=== PATIENT | male | born 2000 | race Hispanic/Latino ===

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

== ENCOUNTER 2020-11-04 04:18 | Emergency (ER) | payer BC, OTHER, SELFPAY ==
[2020-11-04 06:12] LABS: Urine Blood NEGATIVE (NEG); Urine Glucose NEGATIVE (NEG); Urine Protein NEGATIVE (NEG); Urine Specific Gravity 1.025 (1.005-1.030); Urine pH 6.5 (5.0-7.0)
[2020-11-04 07:36] LABS: Absolute Lymphocytes (CBC) 2.2 K/uL (0.7-4.9); Basophils % 0.7 % (0-1.3); Hematocrit 44.6 % (39.6-49.0); RBC Red Blood Cell Count 5.12 M/uL (4.33-5.43)
[2020-11-04] MEDS ORDERED: MAGNES/ALUMIN/SIMET 30ML UCUP ONE (07:42)
[2020-11-04] MEDS ORDERED: NA CHLORIDE 0.9% 1,000 ML ONE (07:43)
[2020-11-04] MEDS ORDERED: ONDANSETRON 4 MG/2 ML VIAL ONE (07:43)
[2020-11-04] MEDS ORDERED: LIDOCAINE VISCOUS 2% SOLN 15 ML UDC ONE (07:43)
[2020-11-04 07:51] LABS: ALT/SGPT 13 U/L (12-78); AST/SGOT 12 U/L (15-37); Albumin 4.3 g/dL (3.4-5.0); Alkaline Phosphatase 47 U/L (45-117); BUN Blood Urea Nitrogen 8 mg/dL (7-18); Bicarbonate 25 mmol/L (21-32); Bilirubin Direct 0.3 mg/dL (0-0.2); Bilirubin Total 1.8 mg/dL (0.2-1.0); Glucose Level 96 mg/dL (74-106); Lipase 109 U/L (73-393); Potassium 3.8 mmol/L (3.5-5.1); Protein, Total 7.3 g/dL (6.4-8.2); Sodium Level 143 mmol/L (136-145)
[2020-11-04 08:15] LABS: Barbiturates NEGATIVE (NEGATIVE); Benzodiazepines NEGATIVE (NEGATIVE); Cocaine NEGATIVE (NEGATIVE); METHAMPHETAM NEGATIVE (NEGATIVE); Methadone NEGATIVE (NEGATIVE); Opiates NEGATIVE (NEGATIVE); Phencyclidine NEGATIVE (NEGATIVE); THC Cannibis POSITIVE (NEGATIVE)
--- NOTE | 2020-11-04 08:38 | RAD REPORT ---
EXAM DESCRIPTION: CT - Abdomen Pelvis W Contrast - 11/04/2020 8:11 am CLINICAL HISTORY: Abdominal pain COMPARISON: none. TECHNIQUE: Computed axial tomography of the abdomen pelvis was obtained. 100 cc Isovue-300 was admin istered intravenously. Oral contrast was not requested which limits evaluation of bowel. All CT scans are performed using dose optimization technique as appropriate and may include automated exposure control or mA/KV adjustment according to patient size. FINDINGS: The liver, spleen, pancreas, adrenal and kidneys appear unremarkable. There is no evidence of diverticulitis. Normal appendix IMPRESSION: No acute abnormality is displayed.
--- NOTE | 2020-11-04 09:24 | ER ---
Nurse's Notes [facility] Name: Lee Frey Age: 20 yrs Sex: Male : 2000 Arrival Date: 11/04/2020 Time: 04:22 Bed 13 Private MD: Diagnosis: Abdominal tenderness;Gastritis, unspecified Presentation: 11/04 04:41 Chief complaint: Patient states: states abd pain for last 3 days in [facility], no ll2 vomiting but slight nausea, no diarrhea or blood stools. was taking tylenol and motrin alternately for a tooth ache last two days, last dose of motrin was yesterday at 1600. Coronavirus screen: Client denies travel out of the [place] in the last 14 days. At this time, the client does not indicate any symptoms associated with coronavirus-19. Ebola Screen: Patient negative for fever greater than or equal to 101.5 degrees Fahrenheit, and additional compatible Ebola Virus Disease symptoms. Initial Sepsis Screen: Does the patient meet any 2 criteria? No. Patient's initial sepsis screen is negative. Does the patient have a suspected source of infection? No. Patient's initial sepsis screen is negative. Risk Assessment: Do you want to hurt yourself or someone else? Patient reports no desire to harm self or others. Onset of symptoms was November 01, 2020. 04:41 Method Of Arrival: Ambulatory ll2 04:41 Acuity: CHRISTIAN 3 ll2 Triage Assessment: 04:45 General: Appears in no apparent distress. Behavior is calm, cooperative, appropriate ll2 for age. Pain: Complains of pain in abdomen. GI: Abdomen is flat, non-distended. Historical: - Allergies: 04:45 No Known Allergies; ll2 - Home Meds: 04:45 None [Active]; ll2 - PMHx: 04:45 None; ll2 - Immunization history:: Adult Immunizations unknown. - Social history:: Smoking status: Patient denies any tobacco usage or history of. Patient uses alcohol, occasionally. Screenin:45 Abuse screen: Denies threats or abuse. Nutritional screening: No deficits noted. ll2 Tuberculosis screening: No symptoms or risk factors identified. Fall Risk None identified. Assessment: 04:45 General: Appears in no apparent distress. Behavior is calm, cooperative, appropriate ll2 for age. Pain: Complains of pain in abdomen. Neuro: Level of Consciousness is awake, alert, obeys commands, Oriented to person, place, time, situation. Cardiovascular: Patient's skin is warm and dry. Respiratory: Airway is patent Respiratory effort is even, unlabored, Respiratory pattern is regular, symmetrical. GI: Bowel sounds present X 4 quads. Abd is soft Abdomen is tender to palpation in right upper quadrant and left upper quadrant. : No signs and/or symptoms were reported regarding the genitourinary system. EENT: No signs and/or symptoms were reported regarding the EENT system. Derm: Skin is intact, is healthy with good turgor, Skin is dry, Skin is pink, warm \T\ dry. Musculoskeletal: Circulation, motion, and sensation intact. Range of motion: intact in all extremities. 05:24 Reassessment: Patient and/or family updated on plan of care and expected duration. Pain ll2 level reassessed. Patient is alert, oriented x 3, equal unlabored respirations, skin warm/dry/pink. 07:39 Reassessment: Patient appears in no apparent distress at this time. Patient and/or ph family updated on plan of care and expected duration. Pain level reassessed. Patient is alert, oriented x 3, equal unlabored respirations, skin warm/dry/pink. Vital Signs: 04:41 BP 115 / 77; Pulse 61; Resp 17; Temp 97.7; Pulse Ox 98% on R/A; ll2 04:45 BP 115 / 77; Pulse 61; Resp 17; Temp 97.7; Pulse Ox 98% on R/A; ll2 05:47 BP 116 / 79; Pulse 59; Resp 16; Pulse Ox 99% on R/A; ll2 07:39 BP 116 / 77; Pulse 64; Resp 18; Pulse Ox 100% on R/A; ph ED Course: 04:22 Patient arrived in ED. ag3 04:41 Bibi Lewis, CARMELA is Primary Nurse. ll2 04:44 Triage completed. ll2 04:45 Arm band placed on right wrist. ll2 04:45 Patient has correct armband on for positive identification. Placed in gown. Bed in low ll2 position. Call light in reach. Side rails up X 1. Pulse ox on. NIBP on. 06:52 Sai Harley MD is Attending Physician. pkl 07:39 Initial lab(s) drawn, by wv, sent to lab. Inserted saline lock: 20 gauge in right ph antecubital area, using aseptic technique. Blood collected. 08:12 CT Abd/Pelvis - IV Contrast Only In Process Unspecified. EDMS 08:15 Primary Nurse role handed off by Bibi Lewis RN 08:19 Attending Physician role handed off by Sai Harley MD cha 08:19 Jose David Mckenzie MD is Attending Physician. renetta 09:23 Clementine Jimenez MD is Referral Physician. renetta 09:33 No provider procedures requiring assistance completed. IV discontinued, intact, ss bleeding controlled, No redness/swelling at site. Pressure dressing applied. Administered Medications: 07:38 Drug: NS 0.9% 1000 ml Route: IV; Rate: 1000 ml; Site: right antecubital; ph 07:38 Drug: Zofran (Ondansetron) 4 mg Route: IVP; Site: right antecubital; ph 09:32 Follow up: Response: Marked relief of symptoms ss 07:39 Drug: GI Cocktail without - (Maalox Suspension 30 ml, Lidocaine Liquid 2 % 15 ph ml) Route: PO; 09:31 Follow up: Response: No adverse reaction; Pain is decreased ss 09:31 Not Given (Pt reports feeling better, and wanted to leave now): Pepcid 20 mg IVP once ss Outcome: 09:23 Discharge ordered by . renetta 09:33 Discharged to home ambulatory. ss 09:33 Condition: good 09:33 Discharge instructions given to patient, family, Instructed on discharge instructions, follow up and referral plans. medication usage, Demonstrated understanding of instructions, follow-up care, medications, Prescriptions given X 2. 09:35 Patient left the ED. ss Signatures: Dispatcher [employer] EDGA Yesica Gore RN RN Jose aDvid Mckenzie MD MD cha Lam, Pin, MD MD pkl Smirch, Shelby, RN RN Agnieszka Spaulding RN RN Sheyla Syed 3 Bibi Lewis RN RN ll2
--- NOTE | 2020-11-04 09:24 | EDPHYS ---
Physician Documentation [facility] Name: Lee Frey Age: 20 yrs Sex: Male : 2000 Arrival Date: 11/04/2020 Time: 04:22 Bed 13 Private MD: ED Physician Jose David Mckenzie HPI: 11/04 07:02 This 20 yrs old Male presents to ER via Ambulatory with complaints of pkl Abdominal Pain. 07:02 The patient presents with abdominal pain in the epigastric area. Onset: The pkl symptoms/episode began/occurred 3 day(s) ago. The symptoms do not radiate. Associated signs and symptoms: Pertinent positives: nausea. Historical: - Allergies: 04:45 No Known Allergies; ll2 - Home Meds: 04:45 None [Active]; ll2 - PMHx: 04:45 None; ll2 - Immunization history:: Adult Immunizations unknown. - Social history:: Smoking status: Patient denies any tobacco usage or history of. Patient uses alcohol, occasionally. ROS: 07:02 Eyes: Negative for injury, pain, redness, and discharge, ENT: Negative for injury, pkl pain, and discharge, Neck: Negative for injury, pain, and swelling, Cardiovascular: Negative for chest pain, palpitations, and edema, Respiratory: Negative for shortness of breath, cough, wheezing, and pleuritic chest pain. 07:02 Abdomen/GI: Positive for abdominal pain, nausea, of the epigastric area. 07:02 Back: Negative for acute changes. 07:02 : Negative for urinary symptoms. 07:02 MS/extremity: Negative for acute changes. 07:02 Skin: Negative for rash. 07:02 Neuro: Negative for altered mental status. Exam: 07:02 Head/Face: Normocephalic, atraumatic. Eyes: Pupils equal round and reactive to light, pkl extra-ocular motions intact. Lids and lashes normal. Conjunctiva and sclera are non-icteric and not injected. Cornea within normal limits. Periorbital areas with no swelling, redness, or edema. ENT: Nares patent. No nasal discharge, no septal abnormalities noted. Tympanic membranes are normal and external auditory canals are clear. Oropharynx with no redness, swelling, or masses, exudates, or evidence of obstruction, uvula midline. Mucous membranes moist. Neck: Trachea midline, no thyromegaly or masses palpated, and no cervical lymphadenopathy. Supple, full range of motion without nuchal rigidity, or vertebral point tenderness. No Meningismus. Chest/axilla: Normal chest wall appearance and motion. Nontender with no deformity. No lesions are appreciated. Cardiovascular: Regular rate and rhythm with a normal S1 and S2. No gallops, murmurs, or rubs. Normal PMI, no JVD. No pulse deficits. Respiratory: Lungs have equal breath sounds bilaterally, clear to auscultation and percussion. No rales, rhonchi or wheezes noted. No increased work of breathing, no retractions or nasal flaring. 07:02 Abdomen/GI: Bowel sounds: normal, Palpation: soft, mild abdominal tenderness, in the epigastric area. 07:02 Back: Exam negative for acute changes. 07:02 : Exam negative for acute changes. 07:02 Musculoskeletal/extremity: Exam is negative for acute changes. 07:02 Skin: Exam negative for rash. 07:02 Neuro: Orientation: is normal, Mentation: is normal, Cranial nerves: grossly normal, Motor: is normal. Vital Signs: 04:41 BP 115 / 77; Pulse 61; Resp 17; Temp 97.7; Pulse Ox 98% on R/A; ll2 04:45 BP 115 / 77; Pulse 61; Resp 17; Temp 97.7; Pulse Ox 98% on R/A; ll2 05:47 BP 116 / 79; Pulse 59; Resp 16; Pulse Ox 99% on R/A; ll2 07:39 BP 116 / 77; Pulse 64; Resp 18; Pulse Ox 100% on R/A; ph MDM: 06:53 Patient medically screened. pkl 11/04 06:01 Order name: Urine Dipstick--Ancillary (enter results); Complete Time: 06:59 tt3 11/04 07:01 Order name: Basic Metabolic Panel; Complete Time: 08:04 pkl 11/04 07:01 Order name: CBC with Diff; Complete Time: 08:04 pkl 11/04 07:01 Order name: Hepatic Function; Complete Time: 08:04 pkl 11/04 07:01 Order name: Lipase; Complete Time: 08:04 pkl 11/04 07:01 Order name: UDS; Complete Time: 09:22 pkl 11/04 06:01 Order name: Urine Dipstick-Ancillary (obtain specimen); Complete Time: 06:01 tt3 11/04 07:01 Order name: IV Saline Lock; Complete Time: 07:38 pkl 11/04 07:01 Order name: Labs collected and sent; Complete Time: 07:38 pkl 11/04 07:06 Order name: CT Abd/Pelvis - IV Contrast Only; Complete Time: 09:22 pkl Administered Medications: 07:38 Drug: NS 0.9% 1000 ml Route: IV; Rate: 1000 ml; Site: right antecubital; ph 07:38 Drug: Zofran (Ondansetron) 4 mg Route: IVP; Site: right antecubital; ph 09:32 Follow up: Response: Marked relief of symptoms ss 07:39 Drug: GI Cocktail without - (Maalox Suspension 30 ml, Lidocaine Liquid 2 % 15 ph ml) Route: PO; 09:31 Follow up: Response: No adverse reaction; Pain is decreased ss 09:31 Not Given (Pt reports feeling better, and wanted to leave now): Pepcid 20 mg IVP once ss Disposition: 11/04/20 09:23 Discharged to Home. Impression: Abdominal tenderness, Gastritis, unspecified. - Condition is Stable. - Discharge Instructions: Abdominal Pain, Adult, Gastritis, Adult, [id number]. - Prescriptions for Bentyl 20 mg Oral Tablet - take 1 tablet by ORAL route every 6 hours As needed; 20 tablet. Pepcid 20 mg Oral Tablet - take 1 tablet by ORAL route every 12 hours for 10 days; 20 tablet. - Medication Reconciliation Form, Thank You Letter, Antibiotic Education, Prescription Opioid Use form. - Follow up: Private Physician; When: 2 - 3 days; Reason: Recheck today's complaints, Continuance of care, Re-evaluation by your physician. Follow up: Clementine Jimenez MD; When: 2 - 3 days; Reason: Recheck today's complaints, Continuance of care, Re-evaluation by your physician. - Problem is new. - Symptoms have improved. Signatures: Dispatcher [employer] EDJose David Dobson MD MD cha Lam, Pin, MD MD pkl Smirch, Shelby, RN RN Agnieszka Spaulding RN RN Bibi Lewis RN RN ll2 Trim, Gerson tt3 Corrections: (The following items were deleted from the chart) 09:35 09:23 11/04/2020 09:23 Discharged to Home. Impression: Abdominal tenderness; Gastritis, ss unspecified. Condition is Stable. Forms are Medication Reconciliation Form, Thank You Letter, Antibiotic Education, Prescription Opioid Use. Follow up: Private Physician; When: 2 - 3 days; Reason: Recheck today's complaints, Continuance of care, Re-evaluation by your physician. Follow up: Clementine Jimenez; When: 2 - 3 days; Reason: Recheck today's complaints, Continuance of care, Re-evaluation by your physician. Problem is new. Symptoms have improved. renetta
[2020-11-04 10:07] VITALS: TEMP 97.7
[2020-11-04 10:11] VITALS: BP 116/77; O2SAT 100
== END 2020-11-04 09:35 | disposition home or self-care (01) ==
LOC: ER 04:18
DX: K29.70 Gastritis, unspecified, without bleeding (principal)
CPT/HCPCS: 36415; 74177; 80048; 80076; 80307; 81003; 83690; 85025; 96374; 99284; J2405; J7030; Q9967

== ENCOUNTER 2021-03-18 18:52 | Emergency (ER) | payer SELFPAY ==
--- OUTSIDE RECORDS SUMMARY | 2021-03-18 18:55 | XMS REPORT | Continuity of Care Document ---
:2000 Author Organization [facility] t Address [address] [place] [address] Dr. Monique [address] [place] [id number] Care Team Providers Name Role Phone Unavailable Unavailable Unavailable Problems This patient has no known problems. Allergies, Adverse Reactions, Alerts This patient has no known allergies or adverse reactions. Medications This patient has no known medications. Procedures This patient has no known procedures. Results This patient has no known results.
--- NOTE | 2021-03-18 20:24 | RAD REPORT ---
EXAM DESCRIPTION: RAD - Ankle Left 3 View - 03/18/2021 8:10 pm CLINICAL HISTORY: Twisted ankle, basketball injury COMPARISON: None. FINDINGS: No fracture, dislocation or periosteal reaction. No joint effusion seen. No joint space na rrowing. No soft tissue abnormality. Lateral soft tissue swelling is present. IMPRESSION: Soft tissue swelling with no left ankle fracture.
--- NOTE | 2021-03-18 20:59 | EDPHYS ---
Physician Documentation [facility] Name: Lee Frey Age: 20 yrs Sex: Male : 2000 Arrival Date: 03/18/2021 Time: 18:54 Bed 30 Private MD: ED Physician Sai Harley HPI: 03/18 20:53 This 20 yrs old Male presents to ER via Wheelchair with complaints of Ankle pm1 Injury. 20:53 The patient presents with pain, that is acute, swelling. The complaints affect the left pm1 ankle. Onset: The symptoms/episode began/occurred today. Context: The problem was sustained at a sports field or court, resulted from someone stepped on his foot and he rolled his ankle, The patient is unable to bear weight. Associated signs and symptoms: Pertinent negatives: calf tenderness, numbness, tingling. Modifying factors: The symptoms are alleviated by elevation of extremity, the symptoms are aggravated by weight bearing. Severity of symptoms: in the emergency department the symptoms are unchanged. The patient has not experienced similar symptoms in the past. The patient has not recently seen a physician. Historical: - Allergies: 19:24 No Known Allergies; ca1 - Home Meds: 19:24 None [Active]; ca1 - PMHx: 19:24 None; ca1 - PSHx: 19:24 None; ca1 - Immunization history:: Flu vaccine is not up to date. - Social history:: Smoking status: Patient/guardian denies using tobacco, the patient reports quitting approximately 1 years ago, Patient uses street drugs, marijuana. ROS: 20:53 Constitutional: Negative for fever, chills, and weight loss, Neck: Negative for injury, pm1 pain, and swelling, Cardiovascular: Negative for chest pain, palpitations, and edema, Respiratory: Negative for shortness of breath, cough, wheezing, and pleuritic chest pain, Abdomen/GI: Negative for abdominal pain, nausea, vomiting, diarrhea, and constipation, Back: Negative for injury and pain. 20:53 Skin: Negative for injury, rash, and discoloration, Neuro: Negative for headache, weakness, numbness, tingling, and seizure. 20:53 MS/extremity: Positive for pain, swelling, of the left ankle, Negative for decreased range of motion, deformity. Exam: 20:53 Constitutional: This is a well developed, well nourished patient who is awake, alert, pm1 and in no acute distress. Head/Face: Normocephalic, atraumatic. 20:53 Back: No spinal tenderness. No costovertebral tenderness. Full range of motion. Skin: Warm, dry with normal turgor. Normal color with no rashes, no lesions, and no evidence of cellulitis. 20:53 Eyes: Exam is negative for acute changes, Extraocular movements: no acute changes. 20:53 ENT: Mouth: no acute changes, Lips: normal, Oral mucosa: normal, pink and intact, moist. 20:53 Cardiovascular: Exam negative for acute changes, Rate: normal, Rhythm: regular, Pulses: no pulse deficits are appreciated. 20:53 Respiratory: Exam negative for acute changes, respiratory distress, shortness of breath. 20:53 Musculoskeletal/extremity: Extremities: grossly normal except: noted in the left lateral ankle: swelling, tenderness, ROM: painful range of motion with left ankle, Circulation is intact in all extremities. Sensation intact. 20:53 Neuro: Exam negative for acute changes, Orientation: is normal, Mentation: is normal, Motor: is normal, moves all fours, Sensation: is normal, no obvious gross deficits. Vital Signs: 19:21 BP 126 / 52; Pulse 81; Resp 16 S; Temp 97.3(TE); Pulse Ox 99% on R/A; Weight 70.31 kg ca1 (R); Height 5 ft. 7 in. (170.18 cm) (R); Pain 10/10; 19:21 Body Mass Index 24.28 (70.31 kg, 170.18 cm) ca1 MDM: 20:49 Patient medically screened. pm1 20:57 Data reviewed: vital signs. Data interpreted: Pulse oximetry: on room air is 99 %. pm1 Interpretation: normal. Counseling: I had a detailed discussion with the patient and/or guardian regarding: the historical points, exam findings, and any diagnostic results supporting the discharge/admit diagnosis, radiology results, the need for outpatient follow up, a orthopedic surgeon, to return to the emergency department if symptoms worsen or persist or if there are any questions or concerns that arise at home. 03/18 19:24 Order name: Ankle Left 3 View XRAY; Complete Time: 20:50 ca1 03/18 20:53 Order name: Splint - Ankle: Orthoglass: Stirrup; Complete Time: 21:48 pm1 03/18 20:53 Order name: Crutches; Complete Time: 21:48 pm1 Administered Medications: 21:48 Drug: Ibuprofen 800 mg Route: PO; zb 21:49 Follow up: Response: Medication administered at discharge. zb Disposition: 03/19 06:11 Co-signature as Attending Physician, Sai Harley MD. pkmily Disposition: 03/18/21 20:59 Discharged to Home. Impression: Sprain of unspecified ligament of left ankle. - Condition is Stable. - Discharge Instructions: Ankle Sprain, Cast or Splint Care, Adult, Crutch Use. - Prescriptions for Diclofenac Sodium 75 mg Oral Tablet, Delayed Release (E.C.) - take 1 tablet by ORAL route 2 times per day As needed; 30 tablet. - Medication Reconciliation Form, Thank You Letter, Antibiotic Education, Prescription Opioid Use form. - Follow up: Emergency Department; When: As needed; Reason: Worsening of condition. Follow up: Private Physician; When: 2 - 3 days; Reason: Recheck today's complaints, Continuance of care, Re-evaluation by your physician. - Problem is new. - Symptoms have improved. Signatures: Dispatcher [employer] EDMS Sai Harley MD MD pkl Osmin Vigil, ADMIN ASSISTANT ADMIN ASSISTANT pm1 Blessing Jones RN RN ca1 Brown, Zipporah, RN RN zb Corrections: (The following items were deleted from the chart) 03/18 21:54 20:59 03/18/2021 20:59 Discharged to Home. Impression: Sprain of unspecified ligament zb of left ankle. Condition is Stable. Forms are Medication Reconciliation Form, Thank You Letter, Antibiotic Education, Prescription Opioid Use. Follow up: Emergency Department; When: As needed; Reason: Worsening of condition. Follow up: Private Physician; When: 2 - 3 days; Reason: Recheck today's complaints, Continuance of care, Re-evaluation by your physician. Problem is new. Symptoms have improved. pm1
--- NOTE | 2021-03-18 20:59 | ER ---
Nurse's Notes [facility] Name: Lee Frey Age: 20 yrs Sex: Male : 2000 Arrival Date: 03/18/2021 Time: 18:54 Bed 30 Private MD: Diagnosis: Sprain of unspecified ligament of left ankle Presentation: 03/18 19:21 Chief complaint: Patient states: Was playing basketball 1 hr LIFTER, twisted L ankle, ca1 swollen and hurting at this time. Ice pack. Coronavirus screen: Client denies travel out of the [place] in the last 14 days. At this time, the client does not indicate any symptoms associated with coronavirus-19. Ebola Screen: Patient negative for fever greater than or equal to 101.5 degrees Fahrenheit, and additional compatible Ebola Virus Disease symptoms Patient denies exposure to infectious person. Patient denies travel to an Ebola-affected area in the 21 days before illness onset. No symptoms or risks identified at this time. Initial Sepsis Screen: Does the patient meet any 2 criteria? No. Patient's initial sepsis screen is negative. Does the patient have a suspected source of infection? No. Patient's initial sepsis screen is negative. Risk Assessment: Do you want to hurt yourself or someone else? Patient reports no desire to harm self or others. Onset of symptoms was March 18, 2021. 19:21 Method Of Arrival: Wheelchair ca1 19:21 Acuity: CHRISTIAN 4 ca1 Historical: - Allergies: 19:24 No Known Allergies; ca1 - Home Meds: 19:24 None [Active]; ca1 - PMHx: 19:24 None; ca1 - PSHx: 19:24 None; ca1 - Immunization history:: Flu vaccine is not up to date. - Social history:: Smoking status: Patient/guardian denies using tobacco, the patient reports quitting approximately 1 years ago, Patient uses street drugs, marijuana. Screenin:53 Abuse screen: Denies threats or abuse. Denies injuries from another. Nutritional zb screening: No deficits noted. Tuberculosis screening: No symptoms or risk factors identified. Fall Risk None identified. Assessment: 21:30 General: Appears uncomfortable, Behavior is calm, cooperative, appropriate for age. zb Pain: Complains of pain in left leg and left lateral ankle Pain does not radiate. Pain currently is 9 out of 10 on a pain scale. Neuro: Level of Consciousness is awake, alert, obeys commands, Oriented to person, place, time, situation. Cardiovascular: Capillary refill < 3 seconds Patient's skin is warm and dry. Respiratory: Airway is patent Respiratory effort is even, unlabored, Respiratory pattern is regular, symmetrical. Derm: Skin is intact, is healthy with good turgor, Skin is dry, Skin is normal, Skin temperature is warm. Musculoskeletal: Capillary refill < 3 seconds, in bilateral Range of motion: limited in left lateral ankle Swelling present in left lateral ankle. Vital Signs: 19:21 BP 126 / 52; Pulse 81; Resp 16 S; Temp 97.3(TE); Pulse Ox 99% on R/A; Weight 70.31 kg ca1 (R); Height 5 ft. 7 in. (170.18 cm) (R); Pain 10/10; 19:21 Body Mass Index 24.28 (70.31 kg, 170.18 cm) ca1 ED Course: 18:54 Patient arrived in ED. as 19:23 Triage completed. ca1 19:24 Arm band placed on right wrist. ca1 20:09 Ankle Left 3 View XRAY In Process Unspecified. EDMS 20:49 Osmin Vigil NP is PHCP. pm1 20:49 Sai Harley MD is Attending Physician. pm1 20:56 Radha Peres, CARMELA is Primary Nurse. zb 21:53 Patient has correct armband on for positive identification. Bed in low position. Call zb light in reach. Door closed. Noise minimized. 21:53 No provider procedures requiring assistance completed. Patient did not have IV access zb during this emergency room visit. Administered Medications: 21:48 Drug: Ibuprofen 800 mg Route: PO; zb 21:49 Follow up: Response: Medication administered at discharge. zb Outcome: 20:59 Discharge ordered by . pm1 21:54 Discharged to home ambulatory. zb 21:54 Condition: stable 21:54 Discharge instructions given to patient, Instructed on discharge instructions, follow up and referral plans. medication usage, Demonstrated understanding of instructions, follow-up care, medications, Prescriptions given X 1. 21:54 Patient left the ED. zb Signatures: Dispatcher [employer] EDMS Olga Restrepo as Osmin Vigil NP BRUSHER WARP pm1 Blessing Jones RN RN ca1 Radha Peres RN RN zb Corrections: (The following items were deleted from the chart) 21:59 21:48 Response: Medication administered at discharge. jovita hussein
[2021-03-18] MEDS ORDERED: IBUPROFEN 400 MG TAB ONE (22:06)
[2021-03-18 22:47] VITALS: BP 126/52; TEMP 97.3; O2SAT 99
== END 2021-03-18 21:54 | disposition home or self-care (01) ==
LOC: ER 18:52
DX: S93.402A Sprain of unspecified ligament of left ankle, initial encounter (principal); X58.XXXA Exposure to other specified factors, initial encounter; Y92.328 Other athletic field as the place of occurrence of the external cause
CPT/HCPCS: 99283

== ENCOUNTER 2021-08-07 22:04 | Emergency (ER) | payer SELFPAY ==
[2021-08-07 22:21] LABS: Urine Blood Negative (Negative); Urine Glucose Negative (Negative); Urine Protein Negative (Negative); Urine Specific Gravity >=1.030 (1.005-1.030); Urine pH 6.5 (5.0-7.0)
[2021-08-07] MEDS ORDERED: NALOXONE HCL 2 MG/2 ML VIAL ONE (22:41)
[2021-08-07 22:55] LABS: ALT/SGPT 17 U/L (12-78); AST/SGOT 17 U/L (15-37); Alkaline Phosphatase 40 U/L (45-117); BUN Blood Urea Nitrogen 9 mg/dL (7-18); Bicarbonate 31 mmol/L (21-32); Bilirubin Direct 0.2 mg/dL (0-0.2); Bilirubin Total 0.8 mg/dL (0.2-1.0); Glucose Level 92 mg/dL (74-106); Potassium 3.8 mmol/L (3.5-5.1); Sodium Level 142 mmol/L (136-145)
[2021-08-07 22:55] LABS: Barbiturates NEGATIVE (NEGATIVE); Benzodiazepines POSITIVE (NEGATIVE); Cocaine NEGATIVE (NEGATIVE); METHAMPHETAM NEGATIVE (NEGATIVE); Methadone NEGATIVE (NEGATIVE); Opiates POSITIVE (NEGATIVE); Phencyclidine NEGATIVE (NEGATIVE); THC Cannibis POSITIVE (NEGATIVE)
[2021-08-07 23:12] LABS: Protime INR 0.96
[2021-08-07 23:18] LABS: Absolute Lymphocytes (CBC) 3.4 K/uL (0.7-4.9); Basophils % 0.4 % (0-1.3); Hematocrit 38.6 % (39.6-49.0); Lymphocytes % 44.3 % (15.3-44.8); MPV 9.8 fL (7.6-11.3); RBC Red Blood Cell Count 4.47 M/uL (4.33-5.43)
--- NOTE | 2021-08-07 23:50 | EDPHYS ---
Physician Documentation [facility] Name: Lee Frey Age: 21 yrs Sex: Male : 2000 Arrival Date: 08/07/2021 Time: 22:06 Bed External Waiting [facility] MD: ED Physician Debbie Pollock HPI: 08/07 22:23 This 21 yrs old Male presents to ER via Unassigned with complaints of Possible pm1 Overdose. 22:23 The patient presents to the emergency department Took hydrocodone from the street pm1 possibly laced with fentanyl for dental pain. Context: Method: the patient has a confirmed or suspected ingestion, Time: today, Extent: the OD/poisoning occurred at at home, Psychiatric history: none, Previous OD/poisoning history: none. Associated signs and symptoms: Pertinent positives: Possible seizure, Pertinent negatives: nausea, shortness of breath, vomiting, Chest pain. Severity of symptoms: in the emergency department the symptoms have improved. The patient has not experienced similar symptoms in the past. The patient has not recently seen a physician. Historical: - Allergies: 22:00 No Known Allergies; jb4 - Home Meds: 22:00 None [Active]; jb4 - PMHx: 22:00 None; jb4 - PSHx: 22:00 None; jb4 - Immunization history:: Adult Immunizations not up to date. - Social history:: Smoking status: Reported history of juuling and/or vaping. Patient uses street drugs, marijuana, abused prescription medications.. ROS: 22:23 Constitutional: Negative for fever, chills, and weight loss. pm1 22:23 Cardiovascular: Negative for chest pain, palpitations, and edema, Respiratory: Negative for shortness of breath, cough, wheezing, and pleuritic chest pain, Abdomen/GI: Negative for abdominal pain, nausea, vomiting, diarrhea, and constipation, Back: Negative for injury and pain, MS/Extremity: Negative for injury and deformity, Skin: Negative for injury, rash, and discoloration. 22:23 ENT: Positive for dental pain, Negative for difficulty swallowing, difficulty handling secretions. 22:23 Neuro: Positive for seizure activity, Negative for numbness, tingling, weakness. 22:23 All other systems are negative. Exam: 22:23 Head/Face: Normocephalic, atraumatic. pm1 22:23 Back: No spinal tenderness. No costovertebral tenderness. Full range of motion. Skin: Warm, dry with normal turgor. Normal color with no rashes, no lesions, and no evidence of cellulitis. MS/ Extremity: Pulses equal, no cyanosis. Neurovascular intact. Full, normal range of motion. 22:23 Constitutional: The patient appears in no acute distress, non-toxic, well developed, well hydrated, well groomed, well nourished, Sleepy but easily arousable 22:23 ENT: Exam is negative for acute changes, Mouth: Lips: normal, moist, Oral mucosa: normal, pink and intact, moist. 22:23 Cardiovascular: Exam negative for acute changes, Rate: normal, Rhythm: regular, Pulses: no pulse deficits are appreciated. 22:23 Respiratory: Exam negative for acute changes, respiratory distress, shortness of breath. 22:23 Neuro: Exam negative for acute changes, Orientation: to person, place, time, situation, Mentation: sleepy, Motor: is normal, moves all fours. Vital Signs: 22:00 BP 109 / 70; Pulse 51; Resp 16; Pulse Ox 96% on R/A; Weight 77.11 kg (R); Height 5 ft. jb4 10 in. (177.80 cm) (R); 22:30 BP 116 / 74; Pulse 68; Resp 17; Pulse Ox 99% on R/A; Pain 0/10; wg 23:45 jb4 22:00 Body Mass Index 24.39 (77.11 kg, 177.80 cm) jb4 23:45 Pt refusing further vitals jb4 MDM: 22:13 Patient medically screened. pm1 22:23 Data reviewed: vital signs. pm1 23:10 ED course: Left with his mother while he was performing procedure in the patient room. pm1 His primary nurse informed me he was alert and oriented and wanted to leave against medical advice. 08/07 22:13 Order name: Acetaminophen; Complete Time: 23:11 pm1 08/07 22:13 Order name: Basic Metabolic Panel; Complete Time: 23:11 pm1 08/07 22:13 Order name: CBC with Diff; Complete Time: 23:59 pm1 08/07 22:13 Order name: ETOH Level; Complete Time: 23:59 pm1 08/07 22:13 Order name: Hepatic Function; Complete Time: 23:11 pm1 08/07 22:13 Order name: PT-INR; Complete Time: 23:59 pm1 08/07 22:13 Order name: Ptt, Activated; Complete Time: 23:59 pm1 08/07 22:13 Order name: Salicylate; Complete Time: 23:59 pm1 08/07 22:13 Order name: Urine Drug Screen; Complete Time: 23:11 pm1 08/07 22:13 Order name: EKG; Complete Time: 22:16 pm1 08/07 22:13 Order name: EKG - Nurse/Tech; Complete Time: 22:23 pm1 08/07 22:16 Order name: CT Head Brain wo Cont pm1 08/07 22:21 Order name: Urine Dipstick-Ancillary; Complete Time: 22:22 EDMS 08/07 22:13 Order name: IV Saline Lock; Complete Time: 22:23 pm1 08/07 22:13 Order name: Labs collected and sent; Complete Time: 22:23 pm1 08/07 22:13 Order name: Urine Dipstick-Ancillary (obtain specimen); Complete Time: 22:23 pm1 Administered Medications: 22:18 Drug: NARcan (naloxone) 1 mg Route: IVP; Site: right antecubital; jb4 Disposition Summary: 08/07/21 23:49 Left Against Medical Advice Location: Home jb4 Condition: Stable jb4 Problem: new pm1 Symptoms: have improved pm1 Diagnosis - Possible seizure pm1 - Drug abuse - Cannabis, Opiates, Benzodiazepine pm1 Followup: pm1 - With: Emergency Department - When: As needed - Reason: Worsening of condition Followup: pm1 - With: Private Physician - When: 2 - 3 days - Reason: Recheck today's complaints, Continuance of care, Re-evaluation by your physician Addendum: 08/09/2021 03:02 Co-signature as Attending Physician, Debbie Pollock MD. m a2 Signatures: Dispatcher [employer] EDMS Osmin Vigil, CLINICAL FACULTY CLINICAL FACULTY pm1 Mark Hair, RN RN jb4 Debbie Pollock MD MD ms2 Corrections: (The following items were deleted from the chart) 08/07 22:23 22:14 Suicide Screening ([place]) ordered. pm1 jb4
--- NOTE | 2021-08-07 23:50 | ER ---
Nurse's Notes [facility] Name: Lee Frey Age: 21 yrs Sex: Male : 2000 Arrival Date: 08/07/2021 Time: 22:06 Bed External Waiting Private MD: Diagnosis: Possible seizure;Drug abuse - Cannabis, Opiates, Benzodiazepine Presentation: 08/07 22:00 Chief complaint: Patient states: They gave me one pill to take and said it was for jb4 pain. I was still hurting so my friend said "hey I have something else that they get from the pharmacy" and he gave me some pill to crush up and snort that had something else that was yellow in it. Parent and/or Guardian states: He was with some friends and had a tooth ache. One of his friends supposedly gave him a Percocet or Xanax that was laced with something else. He has a history of drug use. 22:00 Coronavirus screen: At this time, the client does not indicate any symptoms associated jb4 with coronavirus-19. Ebola Screen: No symptoms or risks identified at this time. Initial Sepsis Screen: Does the patient meet any 2 criteria? No. Patient's initial sepsis screen is negative. Does the patient have a suspected source of infection? No. Patient's initial sepsis screen is negative. Risk Assessment: Do you want to hurt yourself or someone else? Patient reports no desire to harm self or others. Onset of symptoms was August 07, 2021. Transition of care: patient was not received from another setting of care. 22:00 Method Of Arrival: Wheelchair jb4 22:00 Acuity: CHRISTIAN 2 jb4 Historical: - Allergies: 22:00 No Known Allergies; jb4 - Home Meds: 22:00 None [Active]; jb4 - PMHx: 22:00 None; jb4 - PSHx: 22:00 None; jb4 - Immunization history:: Adult Immunizations not up to date. - Social history:: Smoking status: Reported history of juuling and/or vaping. Patient uses street drugs, marijuana, abused prescription medications.. Screenin:00 Abuse screen: Denies threats or abuse. Nutritional screening: No deficits noted. jb4 Tuberculosis screening: No symptoms or risk factors identified. Fall Risk Secondary diagnosis (15 points) seizures, IV access (20 points). Gait- Impaired (20 pts.). Mental Status- Overestimates/Forgets Limitations (15 pts.). [place] Fall Scale indicates High Risk Score (45 or more points). Fall prevention measures have been instituted. Side Rails Up X 2 Placed Close to Nursing Station Frequent Obs/Assessments Occuring Family Present and informed to notify staff if the need to leave the bedside As available patient and family educated on Fall Prevention Program and Strategies. Assessment: 22:00 General: Appears distressed, uncomfortable, Behavior is cooperative, drowsy, restless. jb4 Pain: Denies pain. Neuro: Level of Consciousness is obeys commands, confused, lethargic, Oriented to person, situation. Cardiovascular: Patient's skin is warm and dry. Respiratory: Airway is patent Respiratory effort is even, unlabored, relaxed, shallow, Respiratory pattern is regular, symmetrical. GI: No signs and/or symptoms were reported involving the gastrointestinal system. : No signs and/or symptoms were reported regarding the genitourinary system. EENT: No signs and/or symptoms were reported regarding the EENT system. Derm: Skin is intact, Skin is pink, warm \\T\\ dry. Musculoskeletal: Circulation, motion, and sensation intact. Range of motion: intact in all extremities. 23:02 Reassessment: Patient appears in no apparent distress at this time. Pt much more alert wg after 1mg of Narcan. Pt insisting on going to the BR. Attempted to redirect using a urinal without success. Pt assisted to BR, pt unstable on his feet but able to stand up and urinate. Pt safely back on stretcher with mother at bedside. 23:45 Reassessment: Patient appears in no apparent distress at this time. Patient and/or jb4 family updated on plan of care and expected duration. Pain level reassessed. Patient is alert, oriented x 3, equal unlabored respirations, skin warm/dry/pink. Pt left AMA, verbalized understanding that symptoms could worsen up to the point of . Pt continues to refuse to stay, left ambulatory with steady gait with sister and mother prior to signing AMA form. Vital Signs: 22:00 BP 109 / 70; Pulse 51; Resp 16; Pulse Ox 96% on R/A; Weight 77.11 kg (R); Height 5 ft. jb4 10 in. (177.80 cm) (R); 22:30 BP 116 / 74; Pulse 68; Resp 17; Pulse Ox 99% on R/A; Pain 0/10; wg 23:45 jb4 22:00 Body Mass Index 24.39 (77.11 kg, 177.80 cm) jb4 23:45 Pt refusing further vitals jb4 ED Course: 22:00 Initial lab(s) drawn, by ga, sent to lab. Inserted saline lock: 18 gauge in right jb4 antecubital area, using aseptic technique. Blood collected. 22:00 Arm band placed on right wrist. jb4 22:00 Patient has correct armband on for positive identification. Bed in low position. Call [facility] light in reach. Side rails up X 1. nipple threader on. Pulse ox on. NIBP on. 22:06 Patient arrived in ED. cf2 22:09 Osmin Vigil NP is PHCP. pm1 22:09 Debbie Pollock MD is Attending Physician. pm1 22:23 Urine Drug Screen Sent. jb4 22:23 Salicylate Sent. jb4 22:23 Ptt, Activated Sent. jb4 22:23 PT-INR Sent. jb4 22:23 Hepatic Function Sent. jb4 22:23 ETOH Level Sent. jb4 22:23 CBC with Diff Sent. jb4 22:23 Basic Metabolic Panel Sent. jb4 22:23 Acetaminophen Sent. jb4 22:32 Mark Hair, RN is Primary Nurse. jb4 22:35 Triage completed. jb4 22:48 CT Head Brain wo Cont In Process Unspecified. EDMS 23:45 No provider procedures requiring assistance completed. IV discontinued, intact, jb4 bleeding controlled, No redness/swelling at site. Pressure dressing applied. 23:59 Primary Nurse role handed off by Mark Hair, RN em Administered Medications: 22:18 Drug: NARcan (naloxone) 1 mg Route: IVP; Site: right antecubital; jb4 Outcome: 23:45 AMA jb4 23:45 Condition: stable 23:49 Patient left the ED. jb4 08/08 01:06 Patient left the ED. em Signatures: Dispatcher [employer] Jagdish Georges RN RN em Osmin Vigil NP BUSHEL GIRL pm1 Mark Hair, CARMELA RN jb4 Melba Fitzpatrick cf2 Miguel Gomes RN wg Corrections: (The following items were deleted from the chart) 08/07 23:59 23:45 Condition: improved jbBetty jb4
[2021-08-08 00:12] VITALS: O2SAT 99
[2021-08-08 01:31] VITALS: BP 128/62; TEMP 98.6
--- NOTE | 2021-08-08 11:08 | RAD REPORT ---
EXAM DESCRIPTION: CT - Head Brain Wo Cont - 08/08/2021 6:44 am CLINICAL HISTORY: SEIZURE TECHNIQUE: Axial computed tomography images of the head/brain without intravenous contrast. Sagitt al and coronal reformatted images were created and reviewed. This CT exam was performed using one o r more of the following dose reduction techniques: automated exposure control, adjustment of the mA and/or kV according to patient size, and/or use of iterative reconstruction technique. COMPARISON: No relevant prior studies available. FINDINGS: Brain: Unremarkable. No hemorrhage. No significant white matter disease. No edema. Ventricles: Unremarkable. No ventriculomegaly. Bones/joints: Bilateral nasal bone fractures which appear somewhat corticated. Soft tissues: Unremarkable. Sinuses: Mild to moderate right and minimal left maxillary and mild right ethmoid sinus mucosal thi ckening. Sinus mucosal thickening. Mastoid air cells: Unremarkable as visualized. No mastoid effusion. IMPRESSION: 1. No acute intracranial or extra-axial abnormality. 2. Bilateral nasal bone fractures which appear somewhat corticated. No appreciable perinasal soft t issue swelling suggesting remote trauma. Please correlate with point tenderness. Electronically signed by: Supriya Mendoza MD 08/07/2021 11:06 PM CDT Due to temporary technical issues with the PACS/Fluency reporting system, reports are being signed by the in house radiologist without review as a courtesy to ensure prompt reporting. The interpreting r adiologist is fully responsible for the content of the report.
--- NOTE | 2021-08-08 16:43 | EKG ---
Test Date: 2021-08-07 Test Time: 22:10:58 Scribing Machine Operator: BHAVANA MEASUREMENT RESULTS: Intervals: Rate: 62 [place]: 162 QRSD: 86 QT: 386 QTc: 391 [place]: P: 53 [place]: 162 QRS: 21 T: 15 INTERPRETIVE STATEMENTS: Normal sinus rhythm Possible Left atrial enlargement Early repolarization Borderline ECG Compared to ECG 02/28/2017 21:52:16 Sinus tachycardia no longer present Electronically Signed On 08-08-21 16:42:44 CDT by Gamaliel Sanabria
== END 2021-08-08 01:06 | disposition left against medical advice (07) ==
LOC: ER 22:04
DX: F12.10 Cannabis abuse, uncomplicated (principal); F11.10 Opioid abuse, uncomplicated; F13.10 Sedative, hypnotic or anxiolytic abuse, uncomplicated
CPT/HCPCS: 36415; 70450; 80048; 80076; 80307; 80320; 80329; 81003; 85025; 85610; 85730; 93005; 96374; 99291; 99292; J2310

== ENCOUNTER 2025-08-31 20:48 | Emergency (ER) | payer SELFPAY ==
[2025-08-31 21:50] LABS: Absolute Lymphocytes (CBC) 1.4 K/uL (0.7-4.9); Hematocrit 39.8 % (39.6-49.0); Hemoglobin 13.2 g/dL (13.6-17.9); MCH 28.5 pg (27.0-35.0); MCHC 33.1 g/dL (32.0-36.0); MCV 86.2 fL (80-100); MPV 9.1 fL (7.6-11.3); Nucleated RBC Absolute Count 0.0 (0-0); Nucleated Red Blood Cells % 0.0 % (0-0); RBC Red Blood Cell Count 4.61 M/uL (4.33-5.43); White Blood Count 13.90 thou/uL (4.3-10.9)
[2025-08-31 21:59] LABS: PT Prothrombin Time 12.6 SECONDS (10-13.0); Protime INR 1.12
[2025-08-31 22:03] LABS: METHAMPHETAM NEGATIVE (NEGATIVE); THC Cannibis POSITIVE (NEGATIVE)
[2025-08-31 22:12] LABS: ALT/SGPT 28 U/L (16-61); AST/SGOT 29 U/L (15-37); Albumin 4.2 g/dL (3.4-5.0); Albumin/Globulin Ratio 1.3 (1.1-1.8); Alkaline Phosphatase 51 U/L (45-117); Anion Gap 8.7 mEq/L (5.0-15.0); BUN Blood Urea Nitrogen 11 mg/dL (7-18); Bilirubin Indirect, Calculated 1.6 mg/dL (0.2-0.8); Globulin 3.3 g/dL (2.3-3.5); Glucose Level 104 mg/dL (74-106); Potassium 3.7 mEq/L (3.5-5.1)
[2025-08-31] MEDS ORDERED: NA CHLORIDE 0.9% 1,000 ML ONE (22:17)
[2025-08-31] MEDS ORDERED: LORazepam 2 MG/ML VIAL ONE (22:17)
[2025-09-01] MEDS ORDERED: LORazepam 2 MG/ML VIAL ONE (03:18)
[2025-09-01] MEDS ORDERED: ZIPRASIDONE MESYLA 20 MG/VIAL IM ONE (03:18)
--- NOTE | 2025-09-01 06:58 | EDPHYS ---
Physician Documentation [facility] Name: Lee Frey Age: 25 yrs Sex: Male : 2000 Arrival Date: 08/31/2025 Time: 20:48 Bed 16 Private MD: ED Physician Freddy Andrews HPI: 08/31 20:54 This 25 yrs old Male presents to ER via Unassigned with complaints of sp4 intoxication, agitation . 20:55 Patient states he took 2 bars and 1 Perc. sp4 09/01 03:50 Patient arrives with EMS with primary complaint of chest pain. Patient apparently took sp4 [address] Xanax bars and 1 Percocet. On arrival patient appears to have mild to moderate agitation appears intoxicated. Not able to provide full history.. Historical: - Allergies: 08/31 21:53 No Known Allergies; kd4 - Immunization history:: Adult Immunizations unknown. - Infectious Disease History:: Denies. - Social history:: Smoking status: Patient denies any tobacco usage or history of. Patient uses alcohol, occasionally. marijuana. - Family history:: not pertinent. ROS: 09/01 03:50 Constitutional: Negative for fever, chills, and weight loss, positive for sp4 intoxication, positive chest pain, positive for drug ingestion All other systems are negative, Exam: 01:10 Constitutional: This is a well developed, well nourished patient who is awake, alert, sp4 appears impaired on substances, appears intoxicated Head/Face: Normocephalic, atraumatic. Eyes: Pupils equal round and reactive to light, extra-ocular motions intact. Lids and lashes normal. Conjunctiva and sclera are not injected. Cornea within normal limits. Periorbital areas with no swelling, redness, or edema. ENT: Nares patent. No nasal discharge, no septal abnormalities noted. Tympanic membranes are normal and external auditory canals are clear. Oropharynx with no redness, swelling, or masses, exudates, or evidence of obstruction, uvula midline. Mucous membranes moist. Neck: Trachea midline, no thyromegaly or masses palpated, and no cervical lymphadenopathy. Supple, full range of motion without nuchal rigidity, or vertebral point tenderness. Chest/axilla: Normal chest wall appearance and motion. Nontender with no deformity. No lesions are appreciated. Cardiovascular: Regular rate and rhythm with a normal S1 and S2. No gallops, murmurs, or rubs. No pulse deficits. Respiratory: Lungs have equal breath sounds bilaterally, clear to auscultation and percussion. No rales, rhonchi or wheezes noted. No increased work of breathing, no retractions or nasal flaring. Abdomen/GI: Soft, with normal bowel sounds. No distension or tympany. No guarding or rebound. No evidence of tenderness throughout. Back: No spinal tenderness. No costovertebral tenderness. Skin: Warm, dry with normal turgor. Normal color with no rashes, no lesions, and no evidence of cellulitis. MS/ Extremity: Pulses equal, no cyanosis. Neurovascular intact. Full, normal range of motion. Neuro: Awake and alert, oriented to person, Cranial nerves II-XII grossly intact. Motor strength 5/5 in all extremities. Sensory grossly intact. Intoxication limits examination, grossly no acute neurologic deficits 01:10 ECG was reviewed by the Attending Physician. EKG at 2129 normal sinus rhythm normal EKG. Vital Signs: 08/31 21:47 BP 123 / 60; Pulse 80; Resp 19; Temp 98.1(O); Pulse Ox 97% on R/A; Pain /10; kd4 22:55 BP 105 / 60; Pulse 80; Resp 17; Pulse Ox 95% on R/A; kd4 09/01 00:39 BP 101 / 55; Pulse 76; Resp 16; Pulse Ox 95% on R/A; kd4 02:34 BP 125 / 63; Pulse 72; Resp 16; Pulse Ox 95% on R/A; kd4 05:05 BP 96 / 61; Pulse 72; Resp 16; Pulse Ox 95% on R/A; kd4 06:08 BP 104 / 61; Pulse 65; Resp 17; Pulse Ox 96% on R/A; kd4 06:53 BP 107 / 54; Pulse 62; Resp 19; Pulse Ox 96% on R/A; kd4 08/31 21:47 Pain Scale: Adult kd4 [place] Coma Score: 08/31 22:12 Eye Response: spontaneous(4). Verbal Response: oriented(5). Motor Response: obeys kd4 commands(6). Total: 15. 09/01 01:10 Eye Response: spontaneous(4). Verbal Response: confused(4). Motor Response: obeys sp4 commands(6). Total: 14. MDM: 08/31 20:56 Medical Screening Exam initiated [facility] 09/01 03:50 Differential diagnosis: acute pericarditis, anxiety, costochondritis, esophagitis, sp4 gastritis, pleurisy. HEART Score: History: Slightly Suspicious (0), ECG: Normal (0), Age: < or = 45 years (0), Risk Factors: No Risk Factors Known (0), Troponin: < or = 1 x Normal Limit (0), Total Score = 0. Data reviewed: vital signs, nurses notes, EMS record, old medical records, lab test result(s), EKG. 03:53 ED course: Patient was given meant for agitation. Patient then woke up at about 3:20 AM 4 and developed moderate psychomotor agitation associated with loud screams . Patient developed significant restlessness and uncooperative behavior. Patient has pulled out his IV. Patient had to be sedated with additional Geodon 40 mg IM, and Ativan 2 mg IM.. 03:54 ED course: Will continue to monitor until 7 AM and then if necessary will sign out to [facility] the daytime physician. 08/31 20:56 Order name: Acetaminophen; Complete Time: 23:40 [facility] 08/31 20:56 Order name: Basic Metabolic Panel; Complete Time: 23:40 [facility] 08/31 20:56 Order name: CBC with Diff; Complete Time: 23:40 [facility] 08/31 20:56 Order name: ETOH Level; Complete Time: 23:40 [facility] 08/31 20:56 Order name: Hepatic Function; Complete Time: 23:40 [facility] 08/31 20:56 Order name: PT-INR; Complete Time: 23:40 [facility] 08/31 20:56 Order name: Salicylate; Complete Time: 23:40 [facility] 08/31 20:56 Order name: Urine Drug Screen; Complete Time: 23:40 [facility] 08/31 20:56 Order name: EKG - Nurse/Tech; Complete Time: 21:42 [facility] 08/31 20:56 Order name: IV Saline Lock; Complete Time: 21:42 [facility] 08/31 20:56 Order name: Labs collected and sent; Complete Time: 21:42 [facility] 08/31 20:56 Order name: Suicide Screening (Alexander); Complete Time: 21:42 sp4 EC/29 21:29 Rate is 212 beats/min. Rhythm is regular, Normal Sinus Rhythm. QRS [place] is Normal. [place] sp4 interval is normal. QRS interval is normal. QT interval is normal. No Q waves. T waves are Normal. No ST changes noted. Clinical impression: Normal ECG. Interpreted by me. Reviewed by me. Administered Medications: 22:23 Drug: LORazepam IM 4 mg IM once {Note: administer iv per MD order.} Route: IM; Site: [facility] Other; 22:54 Follow up: Response: No adverse reaction kd4 22:24 Drug: NS 0.9% IV 1000 ml IV at 1000 ml once; to be given as a bolus over 60 minutes kd4 Route: IV; Rate: 1000 ml; Site: left antecubital; 09/01 07:27 Follow up: Response: No adverse reaction; IV Status: Completed infusion; IV Intake: ll1 1000ml 03:31 Drug: Geodon IM 40 mg IM once Route: IM; Site: right deltoid; kd4 06:07 Follow up: Response: No adverse reaction kd4 03:31 Drug: LORazepam IM 2 mg IM once Route: IM; Site: left deltoid; kd4 06:07 Follow up: Response: No adverse reaction kd4 Disposition Summary: 09/01/25 06:57 Discharge Ordered Notes: Location: Home sp4 Problem: new sp4 Symptoms: have improved sp4 Condition: Stable sp4 Diagnosis - Acute drug intoxication, acute drug-related psychosis, noncardiac chest pain sp4 Followup: sp4 - With: Private Physician - When: As needed - Reason: Discharge Instructions: - Discharge Summary Sheet sp4 - Substance Use Disorder sp4 Forms: - Patient Portal Instructions sp4 Signatures: Dispatcher [employer] EDFreddy Yepez MD MD sp4 Quita Tarango RN RN kd4 Steph Munoz RN ll1 Corrections: (The following items were deleted from the chart) 08/31 20:56 20:56 ACETAMINOPHEN+C.LAB.BRZ ordered. EDMS EDMS 20:56 20:56 BASIC METABOLIC PANEL+C.LAB.BRZ ordered. EDMS EDMS 20:56 20:56 CBC+H.LAB.BRZ ordered. EDMS EDMS 20:56 20:56 ETHANOL+C.LAB.BRZ ordered. EDMS EDMS 20:56 20:56 HEPATIC FUNCTION+C.LAB.BRZ ordered. EDMS EDMS 20:56 20:56 PROTIME (+INR)+COAG.LAB.BRZ ordered. EDMS EDMS 20:56 20:56 SALICYLATE+C.LAB.BRZ ordered. EDMS EDMS 20:56 20:56 URINE DRUG SCREEN+UC.LAB.BRZ ordered. EDMS EDMS
--- NOTE | 2025-09-01 06:58 | ER ---
Nurse's Notes [facility] Name: Lee Frey Age: 25 yrs Sex: Male : 2000 Arrival Date: 08/31/2025 Time: 20:48 Bed 16 Private MD: Diagnosis: Acute drug intoxication, acute drug-related psychosis, noncardiac chest pain Presentation: 08/31 21:47 Chief complaint: Patient states: 25 years old male present via [facility] [address] with c/o kd4 of chest pain 6/10,headache,nausea. denies sob. Per Ems patient friend called when patient start co of chest pain, admit to taking 2 bar a,d percocet. denies sob. A/o x 4. Coronavirus screen: Client denies travel out of the [place] in the last 14 days. Ebola Screen: Patient negative for fever greater than or equal to 101.5 degrees Fahrenheit, and additional compatible Ebola Virus Disease symptoms. Initial Sepsis Screen: Does the patient meet any 2 criteria? No. Patient's initial sepsis screen is negative. Does the patient have a suspected source of infection? No. Patient's initial sepsis screen is negative. Risk Assessment: Do you want to hurt yourself or someone else? Patient reports no desire to harm self or others. Onset of symptoms was August 31, 2025. 21:47 Method Of Arrival: EMS: [facility] kd4 21:47 Acuity: CHRISTIAN 3 kd4 Triage Assessment: 21:53 General: Appears in no apparent distress. Behavior is anxious. Pain: Complains of pain kd4 in chest Pain currently is 6 out of 10 on a pain scale. Neuro: Denies weakness blurred vision dizziness, numbness. Cardiovascular: Chest pain is described as mild. Respiratory: Denies shortness of breath at rest, on exertion. Historical: - Allergies: 21:53 No Known Allergies; kd4 - Immunization history:: Adult Immunizations unknown. - Infectious Disease History:: Denies. - Social history:: Smoking status: Patient denies any tobacco usage or history of. Patient uses alcohol, occasionally. marijuana. - Family history:: not pertinent. Screenin:12 [facility] ED Fall Risk Assessment (Adult) History of falling in the last 3 months, kd4 including since admission No falls in past 3 months (0 pts) Confusion or Disorientation No (0 pts) Intoxicated or Sedated No (0 pts) Impaired Gait No (0 pts) Mobility Assist Device Used No (0 pt) Altered Elimination No (0 pt) Score/Fall Risk Level 0 - 2 = Low Risk Oriented to surroundings, Maintained a safe environment. Abuse screen: Denies threats or abuse. Nutritional screening: No deficits noted. Tuberculosis screening: No symptoms or risk factors identified. Assessment: 22:12 General: see triage. kd4 23:38 General: patient in bed sleeping. kd4 09/01 03:30 General: Patient become agitated, yelling md shelia assess patient order placed and kd4 adiministered.. 04:36 General: Patient now sleeping, pulled out his IV. kd4 07:28 Reassessment: No changes from previously documented assessment. ll1 Vital Signs: 08/31 21:47 BP 123 / 60; Pulse 80; Resp 19; Temp 98.1(O); Pulse Ox 97% on R/A; Pain 6/10; kd4 22:55 BP 105 / 60; Pulse 80; Resp 17; Pulse Ox 95% on R/A; kd4 09/01 00:39 BP 101 / 55; Pulse 76; Resp 16; Pulse Ox 95% on R/A; kd4 02:34 BP 125 / 63; Pulse 72; Resp 16; Pulse Ox 95% on R/A; kd4 05:05 BP 96 / 61; Pulse 72; Resp 16; Pulse Ox 95% on R/A; kd4 06:08 BP 104 / 61; Pulse 65; Resp 17; Pulse Ox 96% on R/A; kd4 06:53 BP 107 / 54; Pulse 62; Resp 19; Pulse Ox 96% on R/A; kd4 08/31 21:47 Pain Scale: Adult kd4 [place] Coma Score: 08/31 22:12 Eye Response: spontaneous(4). Verbal Response: oriented(5). Motor Response: obeys kd4 commands(6). Total: 15. 09/01 01:10 Eye Response: spontaneous(4). Verbal Response: confused(4). Motor Response: obeys sp4 commands(6). Total: 14. ED Course: 08/31 20:50 Patient arrived in ED. rv1 20:54 Freddy Andrews MD is Attending Physician. sp4 21:42 Initial lab(s) drawn, by color laboratory technician, sent to lab. Inserted saline lock: 20 gauge in left ts3 antecubital area, using aseptic technique. Blood collected. Flushed with 10 mL NS. 21:42 EKG done, by cytogenetic technologist. reviewed by Freddy Andrews MD. ts3 21:42 Urine collected: clean catch specimen, sent to lab. ts3 21:47 Quita Tarango, RN is Primary Nurse. kd4 21:53 Triage completed. kd4 21:53 EKG completed in triage. Results shown to MD. EKG done per protocol. Performed by ED kd4 Staff. Urine obtained. Labs ordered per protocol. Drawn by ED staff. 22:12 Patient has correct armband on for positive identification. Side rails up X 1. Client kd4 placed on continuous cardiac and pulse oximetry monitoring. NIBP monitoring applied. personnel monitor on. Pulse ox on. NIBP on. 09/01 07:00 Provided Education on: ER procedures and process. ll1 07:28 No provider procedures requiring assistance completed. IV discontinued, intact, ll1 bleeding controlled, No redness/swelling at site. Pressure dressing applied. 07:29 Arm band placed on. ll1 Administered Medications: 08/31 22:23 Drug: LORazepam IM 4 mg IM once {Note: administer iv per MD order.} Route: IM; Site: [facility] Other; 22:54 Follow up: Response: No adverse reaction kd4 22:24 Drug: NS 0.9% IV 1000 ml IV at 1000 ml once; to be given as a bolus over 60 minutes kd4 Route: IV; Rate: 1000 ml; Site: left antecubital; 09/01 07:27 Follow up: Response: No adverse reaction; IV Status: Completed infusion; IV Intake: ll1 1000ml 03:31 Drug: Geodon IM 40 mg IM once Route: IM; Site: right deltoid; kd4 06:07 Follow up: Response: No adverse reaction kd4 03:31 Drug: LORazepam IM 2 mg IM once Route: IM; Site: left deltoid; kd4 06:07 Follow up: Response: No adverse reaction kd4 Medication: 08/31 22:12 VIS not applicable for this client. kd4 Intake: 09/01 07:27 IV: 1000ml; Total: 1000ml. ll1 Output: 08/31 22:12 Urine: 1ml (Voided); Total: 1ml. kd4 Outcome: 09/01 06:57 Discharge ordered by . sp4 07:28 Discharged to home via wheelchair, 1 07:28 Condition: stable 07:28 Discharge instructions given to patient, Instructed on discharge instructions, follow up and referral plans. Demonstrated understanding of instructions, follow-up care, : Patient left the ED. 1 Signatures: Steph Munoz RN RN ll1 Lina Tiwari Sergey, MD MD sp4 Quita Tarango RN RN kd4 Ashia Mendoza 3
[2025-09-01 07:55] VITALS: TEMP 98.1
[2025-09-01 08:05] VITALS: O2SAT 96
[2025-09-01 08:07] VITALS: BP 107/54
== END 2025-09-01 07:29 | disposition home or self-care (01) ==
LOC: ER 20:48
DX: F19.959 Other psychoactive substance use, unspecified with psychoactive substance-induced psychotic disorder, unspecified (principal); T50.901A Poisoning by unspecified drugs, medicaments and biological substances, accidental (unintentional), initial encounter; R07.89 Other chest pain
CPT/HCPCS: 36415; 80048; 80076; 80143; 80179; 80307; 82077; 85025; 85610; 93005; 96360; 96361; 96372; 99285; J3486; J7030